=== PATIENT | female | born 1965 | race Hispanic/Latino ===

== ENCOUNTER → 2018-01-16 | Day surgery (SDC) | payer OTHER ==
[~2018-01-16] MED LIST: FENTANYL CITRATE/PF 100MCG/2 ML INJ ONE; LIDOCAINE HCL 2% LOCAL INJ 5 ML SDV VIAL INJ ONE; MIDAZOLAM HCL 2 MG/2 ML VIAL ONE; PROPOFOL IV EMULSION 10 MG/ML 50 ML VIAL ONE
--- NOTE | 2018-01-16 11:15 | Operative Report ---
DATE OF PROCEDURE: January 16, 2018 REFERRING PHYSICIAN: Deb Rubio MD PROCEDURES PERFORMED 1. Esophagogastroduodenoscopy with biopsies. 2. Colonoscopy. INDICATIONS FOR EGD: Heartburn, indigestion. INDICATIONS FOR COLONOSCOPY: Colorectal cancer screening. MEDICATION: Patient was done under MAC. Please see anesthesiologist's note. PROCEDURE: With the patient in the left lateral decubitus position, the flexible fiberoptic Olympus gastroscope was introduced into the esophagus under direct visualization without any difficulty. There was some patchy erythema noted in the distal esophagus. The scope was then advanced with ease into the stomach. Mucosa overlying the antrum and the body revealed some patchy erythema and low-grade to moderate edema, and biopsies were obtained and sent to stain for H. pylori. An approximately 5-mm, sessile, umbilicated lesion was noted in the antrum suspicious for a pancreatic rest. Biopsies were obtained. The pylorus was of normal contour and shape. It was intubated with ease, and the scope was advanced all the way to the 2nd portion of the duodenum. Mucosa overlying the proximal 2nd portion appeared to be within normal limits. A minute ulcer was noted in the duodenal bulb without active bleeding or stigmata of recent hemorrhage. The scope was then withdrawn back into the stomach and retroflexed. Mucosa overlying the fundus and the cardia appeared to be within normal limits. The scope was then straightened out. The stomach was decompressed. Scope was subsequently withdrawn. Patient tolerated the procedure well. IMPRESSION 1. Distal esophagitis. 2. Gastritis, biopsied. Biopsies sent to stain for H. pylori. 3. Rule out pancreatic rest, antrum. 4. Duodenal ulcer, bulb, without active bleeding or stigmata of recent hemorrhage. PLAN: Follow up histology. Initiate Protonix 40 mg 1 p.o. q.a.m. a.c. The patient was then turned around. After adequate lubrication of the anal canal, a flexible fiberoptic Olympus colonoscope was inserted into the rectum with ease and advanced all the way to the cecum. The mucosa overlying the cecum appeared to be within normal limits. Scattered diverticular disease was noted throughout the colon but more pronounced in the sigmoid and distal descending. The rectum appeared to be within normal limits. The scope was then retroflexed into the distal rectum, and small internal hemorrhoids were noted, none of which was actively bleeding. The scope was then straightened out and it was subsequently withdrawn. Patient tolerated the procedure well. IMPRESSION 1. Diverticulosis. 2. Internal hemorrhoids, none actively bleeding. PLAN: Initiate high-fiber, low-fat diet. Initiate high-fiber supplement. Patient will need a followup colonoscopy in 5 years. Job#: [id number] cc:DEB RUBIO MD
== END | disposition home or self-care (01) ==
LOC: OR 07:07
PROVIDERS: ATTEND Internal Medicine Gastroenterology
DX: Z12.11 Encounter for screening for malignant neoplasm of colon (principal); K29.50 Unspecified chronic gastritis without bleeding; K31.9 Disease of stomach and duodenum, unspecified; K26.9 Duodenal ulcer, unspecified as acute or chronic, without hemorrhage or perforation; K20.9 Esophagitis, unspecified; K57.30 Diverticulosis of large intestine without perforation or abscess without bleeding; A04.8 Other specified bacterial intestinal infections; K64.8 Other hemorrhoids; R00.1 Bradycardia, unspecified; F17.210 Nicotine dependence, cigarettes, uncomplicated; Z01.810 Encounter for preprocedural cardiovascular examination
CPT/HCPCS: 43239; 45378; 93005; J2001; J2250